=== PATIENT | female | born 1960 | race Caucasian/White ===

== ENCOUNTER 2017-07-20 09:18 | Emergency (ER) | payer MEDICAID, OTHER ==
[~2017-07-20] VITALS: Ht 149.9 cm; Wt 79.9 kg
[~2017-07-20 09:18] MED LIST: ALPR0.5T20 PO; AMLO-27 PO; ATEN25TA7 PO; LEVO0.0523 PO; ORE25 PO
[2017-07-20 09:21] VITALS: BP 140/81
--- NOTE | 2017-07-20 09:33 | NUR ---
Patient ambulated to bed 7 with family. RN evaluating patient at bedside.
--- NOTE | 2017-07-20 09:39 | NUR ---
56F BIB FAMILY C/O LEFT SIDED HEADACHE, THROBBING, NON-RADIATING, 7/10 X 2 DAYS; PT STATES NO TRAUMA OR INJURY TO SITE AT THIS TIME; PT STATES NO VISION LOSS OR BLURRY VISION AT THIS TIME; PT AA&OX4, PERRLA; BL LUNG SOUNDS CLEAR, RR EVEN/UNLABORED, SKIN IS WARM/DRY/INTACT AT THIS TIME; PT C/O NAUSEA X 1 WEEK, BUT STATES NO VOMITING/DIARRHEA AT THIS TIME; ABDOMEN SOFT, NON-TENDER, ACTIVE BOWEL SOUNDS X 4 QUADRANTS; STEADY GAIT; PT RESTING IN BED WITH HOB ELEVATED AND IN LOWEST POSITION; POSITIONED FOR COMFORT; ER MD MADE AWARE OF STATUS. WILL CONTINUE TO MONITOR.
--- NOTE | 2017-07-20 09:46 | NUR ---
ER MD DR. OJEDA EVALUATING PT AT BEDSIDE.
[2017-07-20 10:02] LABS: BASOPHILS # (AUTO) 0.3 K/uL (0.00-0.22); BASOPHILS % (AUTO) 3.4 % (0.0-2.0); EOSINOPHILS # (AUTO) 0.1 K/uL (0-0.4); EOSINOPHILS % (AUTO) 1.4 % (0.0-4.0); HEMATOCRIT 42.6 % (36-48); HEMOGLOBIN 13.9 g/dL (12.0-16.0); LYMPHOCYTES # (AUTO) 1.2 K/uL (2.5-16.5); LYMPHOCYTES % (AUTO) 15.8 % (20.5-51.1); MEAN CORPUSCULAR HEMOGLOBIN 28 pg (27-31); MEAN CORPUSCULAR HGB CONC 33 g/dL (33-37); MEAN CORPUSCULAR VOLUME 87 fL (80-94); MONOCYTES # (AUTO) 0.5 K/uL (0.8-1.0); MONOCYTES % (AUTO) 7.1 % (1.7-9.3); NEUTROPHILS # (AUTO) 5.4 K/uL (1.8-7.7); NEUTROPHILS % (AUTO) 72.3 % (42.2-75.2); PLATELET COUNT (AUTO) 159 K/uL (140-450); RED BLOOD CELL COUNT(AUTO) 4.89 MIL/uL (4.20-5.40); RED CELL DISTRIBUTION WIDTH 12.6 % (11.6-13.7); WHITE BLOOD COUNT (AUTO) 7.6 K/uL (4.8-10.8)
[2017-07-20 10:13] LABS: ANION GAP 9.5 (8-16); CARBON DIOXIDE 31.2 mmol/L (21-32); CREATININE 0.8 mg/dL (0.6-1.3); POTASSIUM 3.7 mmol/L (3.5-5.1)
[2017-07-20 10:19] LABS: ALBUMIN 3.9 g/dL (3.4-5.0); TOTAL BILIRUBIN 1.3 mg/dL (0.0-1.0)
--- NOTE | 2017-07-20 11:23 | NUR ---
PT APPEARS TO BE RESTING COMFORTABLY IN BED; RR EVEN/UNLABORED; POSITIONED FOR COMFORT; FAMILY AT BEDSIDE; WILL CONTINUE TO MONITOR.
[2017-07-20 11:48] VITALS: BP 142/76
--- NOTE | 2017-07-20 11:48 | NUR ---
Patient discharged with v/s stable. Written and verbal after care instructions given and explained. Patient alert, oriented and verbalized understanding of instructions. Ambulatory with steady gait. All questions addressed prior to discharge. ID band removed. Patient advised to follow up with PMD. Rx of FLORICET [id number] TAB & ATIVAN 1MG TAB given. Patient educated on indication of medication including possible reaction and side effects. Opportunity to ask questions provided and answered.
== END 2017-07-20 11:48 | disposition home or self-care (01) ==
LOC: MED 09:18
DX: G44.209 Tension-type headache, unspecified, not intractable (principal); I10 Essential (primary) hypertension; E03.9 Hypothyroidism, unspecified; F41.9 Anxiety disorder, unspecified; Z88.8 Allergy status to other drugs, medicaments and biological substances
CPT/HCPCS: 36415; 80053; 81002; 81025; 83880; 84443; 84484; 85025; 93005; 99285

== ENCOUNTER 2018-01-02 12:43 | Emergency (ER) | payer OTHER ==
[~2018-01-02] VITALS: Ht 154.9 cm; Wt 80.3 kg
[2018-01-02 12:55] VITALS: BP 160/95
--- NOTE | 2018-01-02 13:26 | NUR ---
PT IN THE BATHROOM AT THIS TIME FOR URINE COLLECTION
--- NOTE | 2018-01-02 13:37 | NUR ---
PATIENT PRESENTS TO ED WITH C/O RT LEG PAIN STARTED LAST SEPTEMBER WORSE THIS MONTH, UNABLE TO SLEEP, DENIES INJURY,ALSO WITH ANXIETY AND PALPITATION. HX; HTN, HYPOTHYROID RX; ATENOLOL, LEVOTHYROXIN, HYDROCHLOROTHIAZIDE .DENIES N/V/D; SKIN IS PINK/WARM/DRY; AAOX4, LUNGS CLEAR BL; HR EVEN AND REGULAR; PT DENIES ANY FEVER, CP, SOB, OR COUGH AT THIS TIME; PATIENT STATES PAIN OF 10/10 AT THIS TIME; PATIENT POSITIONED FOR COMFORT; HOB ELEVATED; BEDRAILS UP X2; BED DOWN. ER MD MADE AWARE OF PT STATUS.
--- NOTE | 2018-01-02 13:39 | NUR ---
WILL RELAY TO MD RESULT OF URINE DIPSTICK
--- NOTE | 2018-01-02 13:46 | NUR ---
DR. HOFFMANN AT BEDSIDE
[2018-01-02] MEDS ORDERED: KETOROLAC 60 MG/2 ML VIAL IM ONE (13:55)
--- NOTE | 2018-01-02 14:04 | NUR ---
PT AAO, SON AT BEDSIDE, ENCOURAGED TO MOVE ARM AFTER THE TORADOL INJECTION AND PT AGREED WITH IT.
[2018-01-02 14:24] VITALS: BP 148/84
--- NOTE | 2018-01-02 14:25 | NUR ---
Patient discharged with v/s stable. Written and verbal after care instructions given and explained. Patient alert, oriented and verbalized understanding of instructions. Ambulatory with steady gait. All questions addressed prior to discharge. ID band removed. Patient advised to follow up with PMD. Rx of CIPRO,MOTRIN,NORCO given. Patient educated on indication of medication including possible reaction and side effects. Opportunity to ask questions provided and answered.
== END 2018-01-02 14:25 | disposition home or self-care (01) ==
LOC: MED 12:43
DX: N39.0 Urinary tract infection, site not specified (principal); M79.604 Pain in right leg; I10 Essential (primary) hypertension; Z90.49 Acquired absence of other specified parts of digestive tract; Z88.8 Allergy status to other drugs, medicaments and biological substances
CPT/HCPCS: 96372; 99283; J1885

== ENCOUNTER 2020-07-24 10:52 | Emergency (ER) | payer OTHER ==
[~2020-07-24] VITALS: Ht 147.3 cm; Wt 81.2 kg
[~2020-07-24 10:52] MED LIST changes: -AMLO-27 PO; +AMLO10TA4 PO
[2020-07-24 11:00] VITALS: BP 174/91
--- NOTE | 2020-07-24 11:00 | NUR ---
PT AMBULATED TO BED 11.
--- NOTE | 2020-07-24 11:20 | NUR ---
RAD AT BEDSIDE
--- NOTE | 2020-07-24 11:21 | NUR ---
59 YO FEMALE C/O RIGHT GREAT TOE PAIN S/P FALL LAST NIGHT, BRUSING NOTED TO BASE OF TOE, PT C/O NUMBESS TO TOES AND FOOT HX HTN, HYPOTHYROID
--- NOTE | 2020-07-24 11:36 | NUR ---
Dr. Win is evaluating the patient at bedside.
[2020-07-24 12:12] VITALS: BP 174/91
== END 2020-07-24 12:12 | disposition home or self-care (01) ==
LOC: MED 10:52
DX: S92.491A Other fracture of right great toe, initial encounter for closed fracture (principal); I10 Essential (primary) hypertension; E07.9 Disorder of thyroid, unspecified; Z79.899 Other long term (current) drug therapy; Z88.8 Allergy status to other drugs, medicaments and biological substances; X58.XXXA Exposure to other specified factors, initial encounter; Y93.89 Activity, other specified; Y92.89 Other specified places as the place of occurrence of the external cause; Y99.8 Other external cause status
CPT/HCPCS: 73660; 99283

== ENCOUNTER 2021-01-10 05:38 | Inpatient (IN) | payer OTHER, SELFPAY ==
[~2021-01-10] VITALS: Ht 144.8 cm; Wt 76.7 kg
[~2021-01-10 05:38] MED LIST changes: -AMLO10TA4 PO; +AMLO10TA89 PO; +HYDR-4004 PO; -ORE25 PO
[2021-01-10] MEDS ORDERED: BUPIVACAINE-MPF 0.25% 30 ML VIAL INJ ONE (07:06)
[2021-01-10] MEDS ORDERED: DEXAMETHASONE 4 MG/ML VIAL ONE (07:25)
[2021-01-10] MEDS ORDERED: fentaNYL citrate 0.05 MG/ML VIAL ONE (07:25)
[2021-01-10] MEDS ORDERED: MEPERIDINE 25 MG/ML SYR IVP PRN (07:25)
[2021-01-10] MEDS ORDERED: KETOROLAC 30 MG/ML VIAL ONE (07:25)
[2021-01-10] MEDS ORDERED: SUCCINYLCHOLINE CHLORIDE 200 MG/10 ML VIAL IVP ONE (07:25)
[2021-01-10] MEDS ORDERED: ONDANSETRON 4 MG/2 ML VIAL IVP PRN ×2 (07:25→07:45)
[2021-01-10] MEDS ORDERED: HYDROmorphone 1 MG/ML AMP IVP PRN (07:25)
[2021-01-10] MEDS ORDERED: ONDANSETRON 4 MG/2 ML VIAL ONE (07:25)
[2021-01-10] MEDS ORDERED: SUGAMMADEX SODIUM 200 MG/2 ML VIAL IV ONE (07:25)
[2021-01-10] MEDS ORDERED: diphenhydrAMINE 50 MG/ML VIAL IVP PRN (07:25)
[2021-01-10] MEDS ORDERED: ROCURONIUM 50 MG/5 ML VIAL IV ONE (07:25)
[2021-01-10] MEDS ORDERED: MIDAZOLAM 2 MG/2 ML VIAL ONE (07:25)
[2021-01-10] MEDS ORDERED: PROPOFOL 200 MG/20 ML VIAL IV ONE (07:25)
[2021-01-10] MEDS ORDERED: SEVOFLURANE 250 ML BTL INH ONE (07:25)
[2021-01-10] MEDS ORDERED: ceFAZolin 1,000 MG VIAL ONE (07:33)
[2021-01-10] MEDS ORDERED: SIMETHICONE 80 MG TAB.CHEW PO PRN (07:45)
[2021-01-10] MEDS ORDERED: KETOROLAC 30 MG/ML VIAL IVP PRN (07:45)
[2021-01-10] MEDS ORDERED: TEMAZEPAM 15 MG CAP PO PRN (07:45)
[2021-01-10] MEDS ORDERED: IBUPROFEN 800 MG TAB PO PRN (07:45)
[2021-01-10] MEDS ORDERED: HYDROmorphone PFS 2 MG/ML SYR IVP PRN (07:45)
[2021-01-10] MEDS: LACTATED RINGERS 1,000 ML IV SCH ×2 (17:15→23:45)
[2021-01-10] MEDS: DOCUSATE SOD/SENNA 50/8.6 MG 1 TAB PO SCH (21:58)
[2021-01-11] MEDS: oxyCODONE/APAP 5/325 MG 1 TAB TAB PO PRN ×4 (01:05→19:33)
[2021-01-11 05:59] LABS: BASOPHILS % (AUTO) 0.2 % (0.0-2.0); EOSINOPHILS % (AUTO) 0.2 % (0.0-4.0); HEMATOCRIT 34.5 % (36-48); HEMOGLOBIN 11.5 g/dL (12.0-16.0); LYMPHOCYTES # (AUTO) 1.9 K/uL (2.5-16.5); LYMPHOCYTES % (AUTO) 18.8 % (20.5-51.1); MEAN CORPUSCULAR HEMOGLOBIN 30 pg (27-31); MEAN CORPUSCULAR HGB CONC 34 g/dL (33-37); MEAN CORPUSCULAR VOLUME 89.7 fL (80-94); MONOCYTES # (AUTO) 0.9 K/uL (0.8-1.0); MONOCYTES % (AUTO) 8.9 % (1.7-9.3); NEUTROPHILS # (AUTO) 7.4 K/uL (1.8-7.7); NEUTROPHILS % (AUTO) 71.9 % (42.2-75.2); PLATELET COUNT (AUTO) 125 K/uL (140-450); RED BLOOD CELL COUNT(AUTO) 3.84 MIL/uL (4.20-5.40); RED CELL DISTRIBUTION WIDTH 13.6 % (11.6-13.7); WHITE BLOOD COUNT (AUTO) 10.3 K/uL (4.8-10.8)
[2021-01-11] MEDS: LEVOTHYROXINE 0.05 MG TAB PO SCH (08:22)
[2021-01-11] MEDS: LACTATED RINGERS 1,000 ML IV SCH (08:24)
--- NOTE | 2021-01-11 08:31 | NUR ---
PATIENT HAS BEEN SCREENED AND CATEGORIZED LOW NUTRITION RISK. PATIENT WILL BE SEEN WITHIN 7 DAYS OF ADMISSION. 01/16/[address]
[2021-01-11] MEDS: hydroCHLOROthiazide 25 MG TAB PO SCH (10:33)
[2021-01-11] MEDS: CHOLECALCIFEROL 1,000 IU TAB PO SCH (10:34)
[2021-01-11] MEDS: atenoloL 50 MG TAB PO SCH (10:35)
--- NOTE | 2021-01-11 11:21 | NUR ---
DC [age] YRS OLD FEMALE PATIENT WAS ADMITTED FROM HOME WITH A DX OF UTERINE PROLAPSE. PT HAS A HX OF BILATERAL COMPLEX OVARIAN CYSTS. DR HUDDLESTON PERFORMED TOTAL ABDOMINAL HYSTERECTOMY BILATERAL SALPINGO OOPHORECTOMY. ADMINISTERED IV, PAIN MEDS AND CONTINUED HOME MEDS. DC PLAN TO GO HOME WHEN STABLE CM TO FOLLOW CALLED [facility] DIRECT SPOKE WITH GAVIN STATED THEY RECEIVED THE NOTIFICATION FOR INPATIENT YESTERDAY AND PROVIDED THE AUTH FOR HOSPITAL STAY [id number] AND FOR DR HUDDLESTON [id number] . CM TO FOLLOW
[2021-01-11] MEDS: NITROFURANTOIN 100 MG CAP PO SCH (17:15)
[2021-01-11] MEDS: DOCUSATE SOD/SENNA 50/8.6 MG 1 TAB PO SCH (21:18)
[2021-01-11] MEDS ORDERED: CAMERA MC ONE (21:25)
[2021-01-12] MEDS: oxyCODONE/APAP 5/325 MG 1 TAB TAB PO PRN ×3 (04:34→16:22)
[2021-01-12] MEDS: LEVOTHYROXINE 0.05 MG TAB PO SCH (06:39)
[2021-01-12] MEDS: NITROFURANTOIN 100 MG CAP PO SCH ×2 (08:07→16:59)
[2021-01-12] MEDS: atenoloL 50 MG TAB PO SCH (08:54)
[2021-01-12] MEDS: hydroCHLOROthiazide 25 MG TAB PO SCH (08:55)
[2021-01-12] MEDS: CHOLECALCIFEROL 1,000 IU TAB PO SCH (08:56)
[2021-01-12] MEDS ORDERED: bisacodyL 10 MG SUPP RC SCH (09:30)
[2021-01-12 15:31] VITALS: BP 107/61
== END 2021-01-12 17:30 | disposition home or self-care (01) | DRG 513 ==
LOC: MMU 05:38 → MFCC 11:12
PROVIDERS: ADMIT Obstetrics & Gynecology; ATTEND Obstetrics & Gynecology
PROC: 0UT70ZZ Resection of Bilateral Fallopian Tubes, Open Approach (ICD-10-PCS; 2021-01-10)
PROC: 0UT20ZZ Resection of Bilateral Ovaries, Open Approach (ICD-10-PCS; 2021-01-10)
PROC: 0UT90ZZ Resection of Uterus, Open Approach (ICD-10-PCS; principal; 2021-01-10 07:30)
DX: N83.202 Unspecified ovarian cyst, left side (principal); N81.4 Uterovaginal prolapse, unspecified; Z20.822 Contact with and (suspected) exposure to COVID-19; N83.201 Unspecified ovarian cyst, right side
CPT/HCPCS: 36415; 71045; 85025; 88307; 93005; J0330; J0690; J1100; J1170; J1885; J2250; J2405; J2704; J3010; J3490; J7120; U0003

== ENCOUNTER 2023-11-15 18:04 | Emergency (ER) | payer OTHER ==
[~2023-11-15] VITALS: Ht 160 cm; Wt 72.6 kg
[2023-11-15 18:21] VITALS: BP 165/65; PULSE 65; RESP 17; TEMP 98; O2SAT 98
[2023-11-15] MEDS ORDERED: ATA25 PO (18:42)
[2023-11-15] MEDS ORDERED: ONDA8TAB87 PO (18:42)
[2023-11-15 18:57] VITALS: BP 167/65; PULSE 66; RESP 17; TEMP 98; O2SAT 97
== END 2023-11-15 18:57 | disposition home or self-care (01) ==
LOC: MED 18:04
DX: F41.9 Anxiety disorder, unspecified (principal); R06.02 Shortness of breath; I10 Essential (primary) hypertension; E03.9 Hypothyroidism, unspecified; Z79.899 Other long term (current) drug therapy; Z90.49 Acquired absence of other specified parts of digestive tract
CPT/HCPCS: 99283